=== PATIENT | male | born 1965 | race Two or more races ===

== ENCOUNTER → 2016-10-04 | Outpatient (CLI) | payer BC ==
[2016-10-04 14:55] VITALS: BP 143/98
[2016-10-04 15:20] VITALS: BP 140/91
== END | disposition home or self-care (01) ==
LOC: Rad HDHVI 14:45
PROVIDERS: ATTEND Internal Medicine Cardiovascular Disease
DX: I26.99 Other pulmonary embolism without acute cor pulmonale (principal); R06.02 Shortness of breath
CPT/HCPCS: 71275; 96374; G0463; Q9967

== ENCOUNTER → 2017-11-14 | Outpatient (CLI) | payer BC, OTHER ==
[~2017-11-14] VITALS: Ht 182.9 cm; Wt 81.6 kg
[2017-11-14 16:15] LABS: Basophils # (auto) 0 uL; Basophils % (auto) 0.8 % (0.0-2.0); Eosinophils # (auto) 0.1 uL; Eosinophils % (auto) 1.9 % (0.0-7.0); Hematocrit 39.8 % (41.0-53.0); Hemoglobin 13.3 g/dL (13.5-17.5); Lymphocytes # (auto) 1.5 uL; Lymphocytes % (auto) 32.6 % (10.0-50.0); Mean Corpuscular Hemoglobin 31.1 pg (28.0-32.0); Mean Corpuscular Hgb Conc. 33.4 g/dL (32.0-36.0); Mean Corpuscular Volume 93.2 fL (80.0-100.0); Monocytes # (auto) 0.4 uL; Monocytes % (auto) 9.1 % (0.0-12.0); Neutrophils # (auto) 2.6 uL; Neutrophils % (auto) 55.6 % (37.0-80.0); Nucleated Red Blood Cells % 0.2 %; Platelet Count (auto) 179 10^3/uL (140-450); Red Blood Cells 4.27 10^6/uL (4.5-5.90); Red Cell Distribution Width 13.8 % (11.8-14.3); White Blood Cell 4.6 10^3/uL (4.4-10.8)
[2017-11-14 16:25] LABS: Urine Blood Negative /uL (Negative); Urine Specific Gravity 1.006 (1.001-1.035)
[2017-11-14 16:36] LABS: Free T4 (Free Thyroxine) 1.13 ng/dL (0.89-1.76)
[2017-11-14 16:43] LABS: Albumin 3.7 g/dL (3.4-5.0); BUN/Creatinine Ratio 11.5; Bilirubin, Total 0.7 mg/dL (0.2-1.0); Calcium 8.7 mg/dL (8.5-10.1); Potassium 3.6 mmol/L (3.5-5.1); Total Protein 6.9 g/dL (6.4-8.2)
== END | disposition home or self-care (01) ==
LOC: Rad HDHVI 13:06
PROVIDERS: ATTEND Internal Medicine Cardiovascular Disease
DX: M32.10 Systemic lupus erythematosus, organ or system involvement unspecified (principal); E78.00 Pure hypercholesterolemia, unspecified; D64.9 Anemia, unspecified; I10 Essential (primary) hypertension; E11.9 Type 2 diabetes mellitus without complications; E55.9 Vitamin D deficiency, unspecified; E03.9 Hypothyroidism, unspecified; B51.9 Plasmodium vivax malaria without complication; N39.0 Urinary tract infection, site not specified; R53.81 Other malaise
CPT/HCPCS: 36415; 78452; 80053; 80061; 81003; 82306; 82607; 83036; 84403; 84439; 84443; 85025; 86225; 86235; 93017; 96374; A9500

== ENCOUNTER → 2017-12-16 | Outpatient (CLI) | payer OTHER ==
[~2017-12-16] MED LIST: IOHEXOL 350 MG/ML 100ML IJ ONE
[2017-12-16 15:00] VITALS: BP 129/89
[2017-12-16 15:25] VITALS: BP 138/91
== END | disposition home or self-care (01) ==
LOC: Rad HDHVI 14:53
PROVIDERS: ATTEND Internal Medicine Cardiovascular Disease
DX: R22.1 Localized swelling, mass and lump, neck (principal); I10 Essential (primary) hypertension; E11.9 Type 2 diabetes mellitus without complications; E78.00 Pure hypercholesterolemia, unspecified
CPT/HCPCS: 70491; 82565; G0463; Q9967

== ENCOUNTER → 2018-05-25 | Outpatient (CLI) | payer OTHER ==
[2018-05-25 15:00] VITALS: BP 148/94
[2018-05-25 15:30] VITALS: BP 163/93
== END | disposition home or self-care (01) ==
LOC: Rad HDHVI 14:54
PROVIDERS: ATTEND Internal Medicine Cardiovascular Disease
DX: J98.11 Atelectasis (principal); I70.0 Atherosclerosis of aorta
CPT/HCPCS: 71275; 82565; G0463; Q9967

== ENCOUNTER → 2019-10-04 | Outpatient (CLI) | payer OTHER ==
[~2019-10-04] VITALS: Ht 182.9 cm; Wt 81.2 kg
[2019-10-04 16:11] LABS: Basophils # (auto) 0 uL; Basophils % (auto) 1.3 % (0.0-2.0); Eosinophils # (auto) 0 uL; Eosinophils % (auto) 1.5 % (0.0-7.0); Hematocrit 44.8 % (41.0-53.0); Hemoglobin 15.1 g/dL (13.5-17.5); Lymphocytes # (auto) 1.3 uL; Lymphocytes % (auto) 40.2 % (10.0-50.0); Mean Corpuscular Hemoglobin 31.5 pg (28.0-32.0); Mean Corpuscular Hgb Conc. 33.8 g/dL (32.0-36.0); Mean Corpuscular Volume 93.3 fL (80.0-100.0); Monocytes # (auto) 0.3 uL; Monocytes % (auto) 8.1 % (0.0-12.0); Neutrophils # (auto) 1.5 uL; Neutrophils % (auto) 48.9 % (37.0-80.0); Nucleated Red Blood Cells % 0.2 %; Platelet Count (auto) 201 10^3/uL (140-450); Potassium 3.8 mmol/L (3.5-5.1); Red Cell Distribution Width 12.5 % (11.8-14.3); Urine Blood Negative /uL (Negative); Urine Specific Gravity 1.003 (1.001-1.035); White Blood Cell 3.2 10^3/uL (4.4-10.8)
[2019-10-04 16:20] LABS: Albumin 4.4 g/dL (3.4-5.0); BUN/Creatinine Ratio 16.5; Bilirubin, Total 0.7 mg/dL (0.2-1.0); Calcium 9.3 mg/dL (8.5-10.1); Total Protein 7.9 g/dL (6.4-8.2)
[2019-10-04 16:22] LABS: Free T4 (Free Thyroxine) 1.17 ng/dL (0.89-1.76); Prostate Specific Antigen 1.33 ng/mL (0.0-4.0)
== END | disposition home or self-care (01) ==
LOC: Rad HDHVI 13:02
PROVIDERS: ATTEND Internal Medicine Cardiovascular Disease
DX: Z00.00 Encounter for general adult medical examination without abnormal findings (principal); R06.02 Shortness of breath; R42 Dizziness and giddiness; E03.9 Hypothyroidism, unspecified; K90.9 Intestinal malabsorption, unspecified; C61 Malignant neoplasm of prostate; E29.1 Testicular hypofunction; N39.0 Urinary tract infection, site not specified; D51.9 Vitamin B12 deficiency anemia, unspecified; R94.31 Abnormal electrocardiogram [ECG] [EKG]; R07.89 Other chest pain; R00.2 Palpitations; Z79.899 Other long term (current) drug therapy
CPT/HCPCS: 36415; 78452; 80053; 80061; 81003; 82306; 82607; 83036; 84153; 84403; 84439; 84443; 85025; 93017; 93306; 96374; A9500